=== PATIENT | female | born 1980 | race Caucasian/White ===

== ENCOUNTER 2022-02-28 10:04 | Emergency (ER) | payer OTHER ==
[2022-02-28 10:18] VITALS: BMI 32.0
[2022-02-28] MEDS ORDERED: BEBTELOVIMAB (EUA) 175 MG/2 ML VIAL IVPUSH ONE (10:20)
[2022-02-28] MEDS ORDERED: IBUPROFEN 600 MG TABLET (FP) PO ONE ×2 (10:27→11:22)
[2022-02-28] MEDS ORDERED: SODIUM CHLORIDE 1,000 ML IV ONE (13:06)
[2022-02-28] MEDS ORDERED: ACETAMINOPHEN 1000 MG/100 ML BAG IVPB ONE (13:06)
[2022-02-28] MEDS ORDERED: ACETAMINOPHEN INJECTION 100 ML IVPB ONE ×2 (13:10→13:33)
[2022-02-28 14:56] VITALS: BP 110/68; PULSE 74; TEMP 98
== END 2022-02-28 15:08 | disposition home or self-care (01) ==
LOC: JER 10:04
PROC: 3E0333Z Introduction of Anti-inflammatory into Peripheral Vein, Percutaneous Approach (ICD-10-PCS; principal; 2022-02-28)
PROC: 3E03329 Introduction of Other Anti-infective into Peripheral Vein, Percutaneous Approach (ICD-10-PCS; 2022-02-28)
PROC: 3E0337Z Introduction of Electrolytic and Water Balance Substance into Peripheral Vein, Percutaneous Approach (ICD-10-PCS; 2022-02-28)
DX: U07.1 COVID-19 (principal)
CPT/HCPCS: 0241U-QW; 71046-TC-FY; 99284-25; Q0222

== ENCOUNTER 2022-11-20 07:56 | Emergency (ER) | payer OTHER ==
[2022-11-20 08:10] VITALS: BP 134/76; PULSE 70; RESP 18; TEMP 98.3; BMI 32.0
[2022-11-20] MEDS ORDERED: KETOROLAC TROMETHAMINE 30 MG/1 ML VIAL IM ONE (09:08)
[2022-11-20] MEDS ORDERED: KETOROLAC TROMETHAMINE 30 MG/1 ML VIAL ONE (09:53)
== END 2022-11-20 11:08 | disposition home or self-care (01) ==
LOC: JER 07:56
PROC: 3E023GC Introduction of Other Therapeutic Substance into Muscle, Percutaneous Approach (ICD-10-PCS; principal; 2022-11-20)
DX: M25.572 Pain in left ankle and joints of left foot (principal)
CPT/HCPCS: 73610-TC-LT-FY; 73630-TC-LT; 99284-25